=== PATIENT | male | born 2005 | race Caucasian/White ===

== ENCOUNTER 2025-05-31 06:06 | Emergency (ER) | payer OTHER, SELFPAY ==
--- NOTE | ~2025-05-31 | CT_ITS ---
EXAMINATION: CTA brain carotid DATE: 05/31/2025 07:52 INDICATION: Seizure. TECHNIQUE: Computed tomographic angiography (CTA) of the head was performed without and with 100 mL Omnipaque-350 intravenous contrast. CTA of the neck was performed with intravenous contrast. Automated exposure control and iterative reconstruction technique were employed. The dose-length product was 1781.25 mGy- cm. Maximum intensity projection and volume rendered 3D-reconstructions were created by the technologist on a separate workstation. COMPARISON: None. FINDINGS: HEAD CTA: There is no intracranial hemorrhage, acute infarction, or abnormal intracranial mass lesion. The ventricles are normal in size. The orbits are normal. There is mucosal thickening in the paranasal sinuses. The mastoid air cells are normal. The vertebral arteries are codominant. There is no significant stenosis of basilar artery or the posterior cerebral arteries. There is no significant stenosis of the intracranial internal carotid arteries or anterior or middle cerebral arteries. Anterior communicating artery is normal. The posterior communicating arteries are normal. There is no aneurysm. NECK CTA: There are no pathologically enlarged lymph nodes. There is no significant stenosis of the vertebral arteries. There is no visible plaque in the proximal internal carotid arteries. There is 0% stenosis of the proximal right internal carotid artery relative to normal distal artery lumen diameter (NASCET criteria). There is 0% stenosis of the proximal left internal carotid artery relative to normal distal artery lumen diameter. The bones are unremarkable. IMPRESSION: 1. Normal brain. 2. No aneurysm or significant intracranial arterial stenosis. 3. 0% stenosis of the proximal internal carotid arteries relative to normal distal artery lumen diameters (NASCET criteria). Reviewed, dictated and finalized at location E. IMPRESSION: 1. Normal brain. 2. No aneurysm or significant intracranial arterial stenosis. 3. 0% stenosis of the proximal internal carotid arteries relative to normal dis paco artery lumen diameters (NASCET criteria).
[2025-05-31 06:04] VITALS: BP 125/71; PULSE 78; RESP 18; TEMP 36.4; O2SAT 97
--- NOTE | 2025-05-31 06:19 | ECG_ITS ---
Test Date: 2025-05-31 06:40:20 Measurements Intervals [place] Rate: 71 P: 78 NE: 159 QRS: 55 QRSD: 96 T: 42 QT: 388 QTc: 423 Interpretive Statements SINUS RHYTHM WITH SINUS ARRHYTHMIA POSSIBLE LEFT ATRIAL ENLARGEMENT POSSIBLE RIGHT VENTRICULAR CONDUCTION DELAY BORDERLINE ECG No previous ECG available for comparison Electronically Signed On 05-31-2025 07:11:36 CDT by Joseph Saucedo D.O.
[2025-05-31 06:35] LABS: Hematocrit 44.6 % (42.0-52.0); Hemoglobin 15.2 g/dL (14.0-18.0); Immature Granulocyte Percent A 0.4 % (0-0.5); Lymphocytes Absolute Auto 1.88 K/mm3 (0.9-3.2); Mean Corpuscular HGB Conc 34.1 g/dl (32-36); Mean Corpuscular Hemoglobin 29.8 pg (26-34); Mean Corpuscular Volume 87.5 fl (80-100); Nucleated Red Blood Cells Absolute Auto 0.000 K/mm3 (0.0-0.012); Nucleated Red Blood Cells Perc 0.0 % (0.0-0.2); Platelet Count Result 308 k/mm3 (150-375); Red Blood Count 5.10 M/mm3 (4.6-6.20); White Blood Count 9.4 K/mm3 (4.5-10.0)
[2025-05-31 07:01] LABS: Alanine Aminotransferase 25 U/L (6-50); Albumin Level 4.7 g/dL (3.5-5.1); Alkaline Phosphatase 56 U/L (38-126); Anion Gap 10 mmol/L (4-12); Aspartate Amino Transferase 25 U/L (17-59); Bilirubin,Total 0.8 mg/dL (0.2-1.3); Blood Urea Nitrogen 14 mg/dL (9-20); Calcium 9.5 mg/dL (8.4-10.2); Carbon Dioxide 24 mmol/L (22-30); Chloride 103 mmol/L (98-107); Estimated CRCL calculation 124 ml/min; Estimated Glomerular Filt Rate > 60; Glucose 125 mg/dL (65-110); Magnesium 2.2 mg/dL (1.6-2.3); Potassium 4.5 mmol/L (3.4-5.0); Sodium 137 mmol/L (137-145); Total Protein 6.8 g/dL (6.3-8.2)
[2025-05-31 07:04] LABS: Add Urine Microscopic? YES; Appearance Urine Clear (Clear); Glucose Urine UA Negative (Negative); Leukocyte Esterase Ur Negative LEU/UL (Negative); Need Manual Microscopic Reviewed; Nitrate Urine Negative (Negative); Specific Grav Ur 1.024 (1.001-1.035)
[2025-05-31 07:07] LABS: Cannabinoid Screen Urine Positive (Negative)
--- NOTE | 2025-05-31 07:45 | ED_ITS ---
HPI - Seizure General Chief Complaint: Seizure Stated Complaint: Seizure with post-ictal period Time Seen by Provider: 05/31/25 07:01 Source: patient and family Mode of arrival: EMS Limitations: no limitations History of Present Illness HPI Narrative: This is a 19-year-old male, with no significant past medical history who presents emergency department with a first-time seizure. The patient's significant other at bedside states at approximately 05:30 this morning, patient return for bathroom lead in bed and began having a tonic-clonic seizure lasting between 1-2 minutes. EMS was called. By their arrival, the patient appeared to be returning to his baseline. The patient denies any recent change in his health, though does state over the past 6 months he has had reduced appetite for unclear cause. He believes this is due to anxiety. He has no other complaints at this time. Related Data Allergies Allergy/AdvReac Type Severity Reaction Status Date / Time No Known Allergies Allergy Verified 05/31/25 06:10 Review of Systems 2 Review of Systems: All systems reviewed & are unremarkable except as noted in HPI and below PMFSH Past Medical History Medical History No significant past medical history Surgical History Surgical History No significant past surgical history Social History Social History Smoking status: Current some day smoker Alcohol intake: current Substance use type: marijuana Exam 2 Narrative: GENERAL: Well-developed, well-nourished, and in no acute distress. HEAD: Normocephalic, atraumatic. EYES: PERRLA and EOMI. CHEST: Clear to auscultation. No respiratory distress. No wheezes rales or rhonchi HEART: Regular rate and rhythm. No murmur heard. Normal peripheral pulses. ABDOMEN: Soft, nontender, nondistended, normal active bowel sounds. EXTREMITIES: Normal range of motion. No edema. SKIN: Warm, dry, no rash. NEURO: Alert and oriented x3. No focal deficit. Strength 5/5 in all extremities, sensation intact bilaterally, ataxia cranial nerves 2-12 intact PSYCH: Normal mood and affect. Course Course Emergency Course: 08:15 - CBC unremarkable. Chemistries demonstrate elevated glucose of 125 and lactic acid elevation of 2.9 (consistent with seizure) but is otherwise unremarkable. Urinalysis demonstrates 2+ protein and ketones though no glucose and is otherwise not concerning for urinary tract infection. Urine drug screen positive for cannabinoids. Alcohol level negative. CT angiogram head and neck not concerning for intracranial mass, hemorrhage or vascular abnormality. During observation, the patient did not have any seizure-like activity. Will discharge with recommendation for primary care and Neurology follow-up. I discussed the findings and recommendations with the patient. Discussed return and emergency precautions including signs/symptoms of neurologic deficit recurrent seizures. The patient voiced understanding and agreement with the plan. All questions answered to his satisfaction. Vital Signs Vital signs: Vital Signs Temperature 97.6 F 05/31/25 06:04 Pulse Rate 78 05/31/25 06:04 Respiratory Rate 18 05/31/25 06:04 Blood Pressure 125/71 05/31/25 06:04 Pulse Oximetry 97 05/31/25 06:04 Oxygen Delivery Room Air 05/31/25 06:04 Temperature 97.6 F 05/31/25 09:01 Pulse Rate 54 L 05/31/25 09:01 Respiratory Rate 14 05/31/25 09:01 Blood Pressure 128/78 05/31/25 09:01 Pulse Oximetry 98 05/31/25 09:01 Oxygen Delivery Room Air 05/31/25 06:35 MDM - Seizure MDM Narrative Medical decision making narrative: Plan: Labs, imaging observation, reassess Differential Diagnosis Differential diagnosis: Likely generalized seizure, new onset seizure and other (Intracranial hemorrhage, intracranial mass metabolic abnormality, UTI, drug/alcohol intoxication, other) Lab Data 05/31/25 06:23 05/31/25 06:23 Labs: Lab Results 05/31/25 05/31/25 Range/Units 06:23 06:38 WBC 9.4 (4.5-10.0) K/mm3 RBC 5.10 (4.6-6.20) M/mm3 Hgb 15.2 (14.0-18.0) g/dL Hct 44.6 (42.0-52.0) % MCV 87.5 (80-100) fl MCH 29.8 (26-34) pg MCHC 34.1 (32-36) g/dl RDW 11.9 (11.5-14.5) % Plt Count 308 (150-375) k/mm3 MPV 9.0 (7.4-10.4) fl Immature Gran % (Auto) 0.4 (0-0.5) % Neut % (Auto) 72.0 (45.5-73.1) % Lymph % (Auto) 20.1 (18.3-44.2) % [place] % (Auto) 4.4 (2.6-8.5) % Eos % (Auto) 2.2 (0-4.4) % Baso % (Auto) 0.9 (0.2-1.2) % Lymph # (Auto) 1.88 (0.9-3.2) K/mm3 [place] # (Auto) 0.4 (0.1-0.6) K/mm3 Eos # (Auto) 0.2 (0-0.3) K/mm3 Baso # (Auto) 0.1 (0.0-0.1) K/mm3 Abs Immat Gran (auto) 0.04 H (0.00-0.031) K/mm3 Absolute Neuts (auto) 6.7 (1.3-6.7) K/mm3 Absolute Nucleated RBC 0.000 (0.0-0.012) K/mm3 Nucleated RBC % 0.0 (0.0-0.2) % Sodium 137 (137-145) mmol/L Potassium 4.5 (3.4-5.0) mmol/L Chloride 103 (98-107) mmol/L Carbon Dioxide 24 (22-30) mmol/L Anion Gap 10 (4-12) mmol/L BUN 14 (9-20) mg/dL Creatinine 0.92 (0.7-1.3) mg/dL Estim Creat Clear Calc 124 ml/min Estimated GFR > 60 (59 - ) Glucose 125 H (65-110) mg/dL Lactic Acid 2.9 H (0.7-2.0) mmol/L Calcium 9.5 (8.4-10.2) mg/dL Magnesium 2.2 (1.6-2.3) mg/dL Total Bilirubin 0.8 (0.2-1.3) mg/dL AST 25 (17-59) U/L ALT 25 (6-50) U/L Alkaline Phosphatase 56 (38-126) U/L Total Protein 6.8 (6.3-8.2) g/dL Albumin 4.7 (3.5-5.1) g/dL Urine Color Yellow (Yellow) Urine Appearance Clear (Clear) Urine pH 5.5 (5.0-9.0) Ur Specific [place] 1.024 (1.001-1.035) Urine Protein 2+ H (Negative) mg/dL Urine Glucose (UA) Negative (Negative) mg/dL Urine Ketones Trace H (Negative) mg/dL Ur Blood (Man) Negative (Negative) Urine Nitrate Negative (Negative) Urine Bilirubin Negative (Negative) Urine Urobilinogen 1.0 (<2.0) mg/dL Add Ur Microanalysis Reviewed Leukocyte Esterase Rfl Negative (Negative) KIT/UL Urine RBC 0-2 (0-2) /hpf Urine WBC 0-5 (0-3) /hpf Ur Squamous Epith Cells None seen (Few) /hpf Urine Bacteria None seen /hpf Urine Casts 6-10 Hyaline Casts Present (None) /lpf Urine Opiates Screen Negative (Negative) Urine Methadone Screen Negative (Negative) Ur Barbiturates Screen Negative (Negative) Ur Phencyclidine Scrn Negative (Negative) Ur Amphetamine Screen Negative (Negative) U Benzodiazepines Scrn Negative (Negative) Urine Cocaine Screen Negative (Negative) U Cannabinoids Screen Positive A (Negative) Ethyl Alcohol < 10 (<10) mg/dL ECG Data EKG #1: Attestation: I personally reviewed and interpreted this ECG as follows: ECG completion date: 05/31/25 ECG completion time: 06:40 Prior ECG tracings: not available for review Interpretation: Sinus rhythm, rate 71, normal axis, no ST segment elevations or T-wave inversions concerning for ischemia normal intervals with QTC of 423. Discharge Plan Discharge Clinical Impression: New onset seizure Isolated proteinuria Qualifiers: Isolated proteinuria type: without specific morphologic lesion Qualified Code(s): R80.0 - Isolated proteinuria Patient Disposition: Home Condition: Stable Instructions: Antibiotic Form, Epilepsy (ED) Additional Instructions: You were seen in the emergency department. Your red blood cell white blood cell counts are normal. Your chemistries were within normal limits. Urinalysis showed protein in the urine but was otherwise not concerning for urinary tract infection or bleeding. A scan of the head and neck was not concerning in the brain mass or aneurysm. I recommend following up with a primary care doctor for the protein in the urine and a neurologist for the seizure. If you develop recurrent seizures, weakness/numbness, change/loss of vision/hearing, or if you have other emergent concerns for life, limb, or eyesight, return to the emergency department. Patient Language: Dominican Follow-up/Referrals: Rhonda Wolff DO [Physician, Family Practice] - 1 Week Naseem Overton MD [Physician, Neurology] - 2 Weeks Time of Disposition: 08:15
[2025-05-31] MEDS: ACETAMINOPHEN 500 MG TABLET 1000 MG PO (07:56)
[2025-05-31] MEDS: ONDANSETRON INJ 4 MG/2 ML VIAL IV PUSH (07:57)
[2025-05-31] MEDS: SODIUM CHLORIDE 0.9% IV 1,000 ML 999 ML IV CONT (07:57)
[2025-05-31 08:00] VITALS: BP 127/70; PULSE 52; RESP 18; O2SAT 98
[2025-05-31 09:01] VITALS: BP 128/78; PULSE 54; RESP 14; TEMP 36.4; O2SAT 98
== END 2025-05-31 09:03 | disposition home or self-care (01) ==
PROVIDERS: Student in an Organized Health Care Education/Training Program; Emergency Provider Preventive Medicine Aerospace Medicine
DX: R56.9 Unspecified convulsions (principal); R80.0 Isolated proteinuria; F17.210 Nicotine dependence, cigarettes, uncomplicated; R94.31 Abnormal electrocardiogram [ECG] [EKG]
CPT/HCPCS: 36415; 70496; 70498; 80053; 80307; 81001; 82077; 83605; 83735; 85025; 93005; 96360; 99284; A9270; J2405; J7030; Q9967